=== PATIENT | female | born 1990 | race Native Hawaiian/Other Pacific Islander ===

== ENCOUNTER 2017-06-14 21:50 | Outpatient (CLI) | payer OTHER ==
[2017-06-14] MEDS ORDERED: CYCL10TA35 PO (22:14)
== END 2017-06-14 22:05 | disposition short-term general hospital (02) ==
LOC: AMB 21:50
DX: R42 Dizziness and giddiness (principal); R11.0 Nausea; R51 Headache
CPT/HCPCS: A0425; A0427

== ENCOUNTER 2017-06-14 22:12 | Emergency (ER) | payer OTHER ==
[~2017-06-14] VITALS: Ht 144.8 cm; Wt 81.6 kg
[2017-06-14] MEDS ORDERED: CYCL10TA35 PO (22:14)
[2017-06-14 23:23] LABS: PLATELET COUNT 276 K/uL (152-353)
== END 2017-06-15 00:33 | disposition home or self-care (01) ==
LOC: ED 22:12
PROVIDERS: Specialist
DX: R55 Syncope and collapse (principal); R51 Headache
CPT/HCPCS: 36415; 85027; 99283